=== PATIENT | male | born 1960 | race Caucasian/White ===

== ENCOUNTER 2016-10-22 20:02 | Emergency (ER) | payer OTHER ==
[2016-10-22] MEDS ORDERED: EPINEPHRINE INJ/PF 1 MG/1 ML AMPULE SUBCUT STA (20:39)
[2016-10-22] MEDS ORDERED: DIPHENHYDRAMINE HCL 50 MG/ML VIAL IV ONE (20:39)
[2016-10-22] MEDS ORDERED: METHYLPREDNISOLONE INJ 125 MG/2 ML SDV IV ONE (20:41)
[2016-10-22] MEDS ORDERED: FAMOTIDINE INJ/PF 20 MG/2 ML SDV IV ONE (20:42)
--- NOTE | 2016-10-22 20:43 | ER Document Report ---
ED Medical Screen (RME) - General Chief Complaint: Allergic reation/ Hives Stated Complaint: POSSIBLE ALLERGIC REACTION Time Seen by Provider: 10/22/16 20:39 Notes: Patient states that he has been having hives since June of this year. He states he is seen his doctor several times and no cause can be found. He has been being tried on Zyrtec with no relief. Tonight's he states that he noticed his face was swelling in his lip with swelling. He also states that it is a little hard to swallow. He denies any shortness of breath. Patient denies any other significant chronic medical problems. On exam patient has facial hives and facial swelling and obvious lower lip swelling. TRAVEL OUTSIDE OF THE [place] IN LAST 30 DAYS: No - Related Data Allergies/Adverse Reactions: No Known Allergies Allergy (Verified 11/14/13 22:16) Past Medical History - Past Medical History Cardiac Medical History: Reports: Hx Hypercholesterolemia Endocrine Medical History: Reports: Hx Diabetes Mellitus Type 2 - pre diabetic Renal/ Medical History: Denies: Hx Peritoneal Dialysis Past Surgical History: Reports: Hx Appendectomy Physical Exam - Vital signs Vitals: Temp Pulse Resp BP Pulse Ox 98.6 F 90 18 138/92 H 93 10/22/16 20:24 10/22/16 20:24 10/22/16 20:24 10/22/16 20:24 10/22/16 20:24 Course - Vital Signs Vital signs: Temp Pulse Resp BP Pulse Ox 98.6 F 90 18 138/92 H 93 10/22/16 20:24 10/22/16 20:24 10/22/16 20:24 10/22/16 20:24 10/22/16 20:24
--- NOTE | 2016-10-22 21:02 | ER Document Report ---
ED General - General Chief Complaint: Allergic reation/ Hives Stated Complaint: POSSIBLE ALLERGIC REACTION Time Seen by Provider: 10/22/16 20:39 Mode of Arrival: Ambulatory Information source: Patient TRAVEL OUTSIDE OF THE [place] IN LAST 30 DAYS: No - HPI Notes: Patient is a pleasant 56-year-old male comes in with report of allergic reaction since 1800 this evening. He reports that he has had swelling to the face and lips, but no voice change. He tells me he is able to swallow without difficulty and he denies any shortness of breath. The patient states that he ate at 1630 sausage and shells and cheese, but he denies any known food allergy. Patient states that he has been having hives since June of this year. He states he is seen his doctor several times and no cause can be found. He has been being tried on Zyrtec with no relief. Patient states he is awaiting formal allergy testing to be performed. He denies any recent medication changes besides his Zyrtec and there was a modification in his Synthroid dosing 2 months ago. No chest pain. - Related Data Allergies/Adverse Reactions: No Known Allergies Allergy (Verified 11/14/13 22:16) Past Medical History - General Information source: Patient - Social History Smoking Status: Never Smoker Chew tobacco use (# tins/day): No Frequency of alcohol use: None Drug Abuse: None Family History: Reviewed & Not Pertinent - Past Medical History Cardiac Medical History: Reports: Hx Hypercholesterolemia Endocrine Medical History: Reports: Hx Diabetes Mellitus Type 2 - pre diabetic Renal/ Medical History: Denies: Hx Peritoneal Dialysis Past Surgical History: Reports: Hx Appendectomy Review of Systems - Review of Systems Notes: REVIEW OF SYSTEMS: CONSTITUTIONAL : Denies fever, chills, or sweats. Denies recent illness. EENT: Denies eye, ear pain or symptoms. Denies nasal or sinus congestion or discharge. Reports mouth swelling around the lips. To me, he denies difficulty swallowing. CARDIOVASCULAR: Denies chest pain. Denies palpitations or racing or irregular heart beat. Denies ankle edema. RESPIRATORY: Denies cough, cold, or chest congestion. Denies shortness of breath, difficulty breathing, or wheezing. GASTROINTESTINAL: Denies abdominal pain or distention. Denies nausea, vomiting , or diarrhea. Denies blood in vomitus, stools, or per rectum. Denies black, tarry stools. Denies constipation. GENITOURINARY: Denies difficulty urinating, painful urination, burning, frequency, blood in urine, or discharge. MUSCULOSKELETAL: Denies back or neck pain or stiffness. Denies joint pain or swelling. SKIN: Denies lesions or sores. HEMATOLOGIC : Denies easy bruising or bleeding. LYMPHATIC: Denies swollen, enlarged glands. NEUROLOGICAL: Denies confusion or altered mental status. Denies passing out or loss of consciousness. Denies dizziness or lightheadedness. Denies headache. Denies weakness or paralysis or loss of use of either side. Denies problems with gait or speech. Denies sensory loss, numbness, or tingling. Denies seizures. PSYCHIATRIC: Denies anxiety or stress. Denies depression, suicidal ideation, or homicidal ideation. ALL OTHER SYSTEMS REVIEWED AND NEGATIVE. Dictation was performed using [employer] recognition software Physical Exam - Vital signs Vitals: Temp Pulse Resp BP Pulse Ox 98.6 F 90 18 138/92 H 93 10/22/16 20:24 10/22/16 20:24 10/22/16 20:24 10/22/16 20:24 10/22/16 20:24 - Notes Notes: PHYSICAL EXAMINATION: GENERAL: Well-appearing, well-nourished and in no acute distress. HEAD: Atraumatic, normocephalic. EYES: Pupils equal round and reactive to light, extraocular movements intact, sclera anicteric, conjunctiva are normal. ENT: Nares patent without exudates. Moist mucous membranes. Patient has lower greater than upper lip swelling and some urticaria on the face extending down to the neck and upper trunk only. NECK: Normal range of motion, supple without lymphadenopathy LUNGS: Breath sounds clear to auscultation bilaterally and equal. No wheezes rales or rhonchi. HEART: Regular rate and rhythm without murmurs ABDOMEN: Soft, nontender, nondistended abdomen. No guarding, no rebound. No masses appreciated. Musculoskeletal: Normal range of motion, no pitting or edema. No cyanosis. NEUROLOGICAL: Cranial nerves grossly intact. Normal speech, normal gait. Normal sensory, motor exams PSYCH: Normal mood, normal affect. SKIN: Warm, Dry, normal turgor. Urticaria around the face and neck and upper trunk only. No cellulitis or abscess. No involvement to the lower half of the abdomen or to the legs. Course - Re-evaluation Re-evalutation: 10/22/16 21:02 Patient given IV Solu-Medrol, Benadryl, Pepcid. 10/22/16 23:24 Vital signs remained stable. Patient had significant improvement in his oropharyngeal swelling, and reports his rash is almost resolved. Patient did recall that he had taken ibuprofen earlier shortly before the onset of symptoms. He states he has had ibuprofen previously without reaction, but he has not taken any for several months that he can recall. He questions correlation with previous ibuprofen use with a previous reaction. No evidence for anaphylaxis or renal dysfunction or thyroid irregularity or anemia or other acute process. - Vital Signs Vital signs: Temp Pulse Resp BP Pulse Ox 98.6 F 90 19 124/78 92 10/22/16 20:24 10/22/16 20:24 10/22/16 23:01 10/22/16 23:01 10/22/16 23:01 - Laboratory Result Diagrams: 10/22/16 20:40 10/22/16 20:40 Laboratory results interpreted by me: 10/22/16 20:40 WBC 10.9 H RDW 14.3 H Discharge - Discharge Clinical Impression: Allergic reaction caused by a drug Qualifiers: Encounter type: initial encounter Qualified Code(s): T78.40XA - Allergy, unspecified, initial encounter Condition: Stable Disposition: HOME, SELF-CARE Instructions: Acute Allergic Reaction to Drugs ([facility]) Additional Instructions: Do not take anti-inflammatories such as ibuprofen, Motrin, Aleve, naproxen, Advil. Take Benadryl up to 50 mg every 4 hours as needed for allergic reaction. Drink plenty of fluids Watch her blood sugars closely while you are taking steroids. Prescriptions: Prednisone [Deltasone 10 mg Tablet] 10 mg PO ASDIR PRN #21 tablet PRN Reason:
[2016-10-22 21:09] LABS: ABSOLUTE EOSINOPHILS # (AUTO) 0.1 10^3/uL (0.0-0.6); ABSOLUTE LYMPHOCYTES (AUTO) 2.6 10^3/uL (0.5-4.7); ABSOLUTE MONOCYTES (AUTO) 0.7 10^3/uL (0.1-1.4); ABSOLUTE NEUT (AUTO) 7.3 10^3/uL (1.7-8.2); BASOPHILS % (AUTO) 0.3 % (0-2); EOSINOPHILS % (AUTO) 1.1 % (0-6); HEMATOCRIT 45.3 % (37.9-51.0); HEMOGLOBIN 15.4 g/dL (13.5-17.0); HGB HCT DIFFERENCE 0.9; LYMPHOCYTES % (AUTO) 24.3 % (13-45); MEAN CORPUSCULAR VOLUME 85 fl (80-97); MONOCYTES % (AUTO) 6.9 % (3-13); RED BLOOD COUNT 5.33 10^6/uL (4.35-5.55); RED CELL DISTRIBUTION WIDTH 14.3 % (11.5-14.0); SEGMENTED NEUTROPHILS % (AUTO) 67.4 % (42-78); WHITE BLOOD COUNT 10.9 10^3/uL (4.0-10.5)
[2016-10-22 21:28] LABS: ALANINE AMINOTRANSFERASE 41 U/L (21-72); ALBUMIN 3.9 g/dL (3.5-5.0); ALKALINE PHOSPHATASE 79 U/L (38-126); ANION GAP 11 (5-19); ASPARTATE AMINO TRANSFERASE 33 U/L (17-59); BILIRUBIN,DIRECT 0.4 mg/dL (0.0-0.4); BILIRUBIN,TOTAL 0.5 mg/dL (0.2-1.3); BLOOD UREA NITROGEN 18 mg/dL (7-20); CALCIUM 9.4 mg/dL (8.4-10.2); CARBON DIOXIDE 26 mmol/L (22-30); CHLORIDE 105 mmol/L (98-107); CREATININE RESULT 0.94 mg/dL (0.52-1.25); GLUCOSE 93 mg/dL (75-110); SODIUM 142.1 mmol/L (137-145); TOTAL PROTEIN 6.9 g/dL (6.3-8.2)
[2016-10-22 21:59] LABS: THYROID STIMULATING HORMONE 0.58 uIU/mL (0.47-4.68)
[2016-10-22 23:44] VITALS: BP 123/81
== END 2016-10-22 23:44 | disposition home or self-care (01) ==
LOC: ER 20:02
DX: L50.9 Urticaria, unspecified (principal); T78.40XA Allergy, unspecified, initial encounter; X58.XXXA Exposure to other specified factors, initial encounter; E78.00 Pure hypercholesterolemia, unspecified; R73.03 Prediabetes
CPT/HCPCS: 99283; 96374; 96375; 36415; 84439; 84443; 85025; 80053; J1200; J2930; S0028